=== PATIENT | male | born 1985 | race Caucasian/White ===

== ENCOUNTER 2021-04-16 22:47 | Emergency (ER) | payer OTHER ==
[~2021-04-16] VITALS: Ht 193 cm; Wt 145.1 kg
[2021-04-16] MEDS ORDERED: METF-440 PO (23:04)
--- NOTE | 2021-04-16 23:05 | NUR ---
ERMD into eval patient.
[2021-04-16] MEDS ORDERED: ASPIRIN 81 MG TAB.CHEW PO ONE (23:15)
[2021-04-16] MEDS ORDERED: ACETAMINOPHEN ES 500 MG TABLET PO ONE (23:15)
[2021-04-16 23:33] LABS: HEMATOCRIT 44.6 % (36.7-47.1); MEAN CORPUSCULAR HEMOGLOBIN 29.9 uug (23.8-33.4); MEAN CORPUSCULAR VOLUME 87.9 fL (73.0-96.2); PLATELET COUNT (AUTO) 274 K/uL (152-348)
[2021-04-16 23:35] LABS: CARBON DIOXIDE 28 mmol/L (21-32); CHLORIDE 104 mmol/L (98-107); CREATININE 1.7 mg/dL (0.6-1.3); GLUCOSE 124 mg/dL (74-106); POTASSIUM 4.1 mmol/L (3.5-5.1); UREA NITROGEN, BLOOD 16 mg/dL (7-18)
[2021-04-16] MEDS ORDERED: ACETAMINOPHEN ES 500 MG TABLET ONE (23:41)
[2021-04-16] MEDS ORDERED: ASPIRIN 81 MG TAB.CHEW ONE (23:41)
[2021-04-16 23:48] LABS: ALANINE AMINOTRANSFERASE 141 U/L (16-63); ALKALINE PHOSPHATASE 56 U/L (50-136); ASPARTATE AMINOTRANSFERASE 59 U/L (15-37); BILIRUBIN,DIRECT < 0.1 mg/dL (0.0-0.2); BILIRUBIN,TOTAL 0.7 mg/dL (0.2-1.0); TOTAL PROTEIN, SERUM 7.6 g/dL (6.4-8.2)
--- NOTE | 2021-04-17 00:30 | NUR ---
Patient states "My headache is better now."
--- NOTE | 2021-04-17 01:55 | NUR ---
IV removed. Catheter intact and site benign. Pressure and 4x4 gauze applied to site. No bleeding noted.
[2021-04-17 02:03] VITALS: BP 165/89
--- NOTE | 2021-04-17 02:03 | NUR ---
Patient does not wish to proceed with medical care recommended by Dr. Escobar ). Patient given information related to possible complications, up to and including , which could occur as a result of leaving the hospital at this time. Patient verbalizes understanding of risks involved due to leaving against medical advice. Patient has signed AMA form.
== END 2021-04-17 02:04 | disposition left against medical advice (07) ==
LOC: ER 22:49
DX: R07.2 Precordial pain (principal); R51.9 Headache, unspecified; E11.9 Type 2 diabetes mellitus without complications; Z79.84 Long term (current) use of oral hypoglycemic drugs; E78.5 Hyperlipidemia, unspecified
CPT/HCPCS: 36415; 70030-TC; 71045; 85025; 93005; A4663; A9150